=== PATIENT | male | born 1960 | race Caucasian/White ===

== ENCOUNTER → 2017-11-08 | Outpatient (CLI) | payer BC | LOC: M WUC 16:06 | DX: S52.501A Unspecified fracture of the lower end of right radius, initial encounter for closed fracture (principal); X58.XXXA Exposure to other specified factors, initial encounter; Y92.9 Unspecified place or not applicable | CPT/HCPCS: 73110 ==

== ENCOUNTER 2019-05-27 17:00 | Emergency (ER) | payer OTHER ==
[~2019-05-27] VITALS: Ht 177.8 cm; Wt 82.8 kg
[2019-05-27] MEDS ORDERED: ibuprofen 400 (17:10)
[2019-05-27 18:54] VITALS: BP 154/88
== END 2019-05-27 18:54 | disposition home or self-care (01) ==
LOC: M ED 17:00
DX: S82.832A Other fracture of upper and lower end of left fibula, initial encounter for closed fracture (principal); X58.XXXA Exposure to other specified factors, initial encounter; Y92.89 Other specified places as the place of occurrence of the external cause

== ENCOUNTER → 2019-05-27 | Outpatient (CLI) | payer OTHER ==
[~2019-05-27] MED LIST: ibuprofen 400
--- NOTE | 2019-05-27 16:56 | REP ---
Clinical: Trauma. Technique: AP, lateral, bilateral oblique views of the left ankle. Findings: There is a subtle acute nondisplaced fracture involving the distal fibula / lateral malleolus with overlying soft tissue swelling. Impression: Distal fibular fracture. Electronically Signed by Rafa Lane MD 05/27/2019 04:48 P
--- NOTE | 2019-05-27 16:58 | REP ---
Clinical: Trauma. Technique: AP, lateral, bilateral oblique views of the left foot. Findings: Acute distal fibular fracture noted. Subtle nondisplaced fracture through the fourth toe proximal phalanx cannot be excluded and should be correlated clinically. 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 Impression: Cannot exclude subtle nondisplaced fracture of the fourth toe proximal phalanx and correlation is recommended. Remainder examination suggests nonacute findings. Electronically Signed by Rafa Lane MD 05/27/2019 04:50 P
== END ==
LOC: M RAD 16:04
PROVIDERS: ATTEND Physician Assistant Medical
DX: R93.7 Abnormal findings on diagnostic imaging of other parts of musculoskeletal system (principal); S89.302A Unspecified physeal fracture of lower end of left fibula, initial encounter for closed fracture; Y92.9 Unspecified place or not applicable; Y93.9 Activity, unspecified; Y99.9 Unspecified external cause status

== ENCOUNTER → 2019-06-09 | Outpatient (CLI) | payer OTHER ==
--- NOTE | 2019-06-09 19:26 | ECGEPIP ---
[facility] Test Date: 2019-06-09 Pat Name: SELMA ROMERO Department: Room: - Gender: Male Director Outpatient Services: : 1960 Requested By: Bull Navarrete @ [facility] Order Number: [id number] Reading MD: Florian Negrete Measurements Intervals [place] Rate: 81 P: 59 HI: 144 QRS: 18 QRSD: 98 T: 36 QT: 344 QTc: 401 Interpretive Statements SINUS RHYTHM normal Electronically Signed on 06-09-2019 19:26:51 EST by Florian Negrete
== END ==
LOC: M EKG 14:57
PROVIDERS: ATTEND Orthopaedic Surgery
DX: Z01.810 Encounter for preprocedural cardiovascular examination (principal)

== ENCOUNTER 2024-01-16 08:57 | Day surgery (SDC) | payer OTHER ==
[~2024-01-16] VITALS: Ht 177.8 cm; Wt 83.5 kg
[~2024-01-16 08:57] MED LIST changes: +PANT20TA6; +PHENYLEPHRINE 10% OPHTH SOL 5ML OD PRN; +fentaNYL 100 MCG/2 ML INJECTION As Ordered ONE
[2024-01-16] MEDS: LIDOCAINE 3.5 % 1ML OPHTH TOPICAL GEL OU ONE (09:53)
[2024-01-16] MEDS: TROPICAMIDE 1% OPHTH SOLN 15ML OD SCH (09:53)
[2024-01-16] MEDS: PHENYLEPHRINE 2.5% OPHTH SOL 2ML OD SCH (09:53)
[2024-01-16] MEDS: OFLOXACIN 0.3 % (OCUFLOX) OPTH SOL 5ML OD ONE (09:53)
[2024-01-16] MEDS: ATROPINE SULFATE 1% OPHTH SOLN 2ML BTL OD SCH (09:53)
[2024-01-16] MEDS: BSS IRRIG/VANCO(10MG)/TOBRA(5MG)/EPINEPH(1:1000-0.5CC)500ML BAG-ORONLY As Ordered ONE (10:45)
[2024-01-16] MEDS: LIDOCAINE 1% SDV 5ML VIAL As Ordered ONE (10:45)
[2024-01-16] MEDS: CEFUROXIME 1MG/0.1ML INTRACAMERAL INJ As Ordered ONE (10:45)
[2024-01-16] MEDS: DUOVISC (0.50ML VISCOAT/0.85ML PROVISC) OPHTH KIT As Ordered ONE (10:54)
[2024-01-16 11:30] VITALS: BP 147/82; TEMP 97.9; O2SAT 98
== END 2024-01-16 11:37 | disposition home or self-care (01) ==
LOC: M SDC 08:57
PROVIDERS: ATTEND Ophthalmology
DX: H25.11 Age-related nuclear cataract, right eye (principal); K21.9 Gastro-esophageal reflux disease without esophagitis; Z79.899 Other long term (current) drug therapy
CPT/HCPCS: 66984; 92015; J0697; J3010; V2788